=== PATIENT | female | born 1965 | race Caucasian/White ===

== ENCOUNTER 2017-09-01 10:41 | Outpatient (CLI) | END 2017-09-01 10:42 | disposition home or self-care (01) | LOC: LAB 10:41 | PROVIDERS: ATTEND Internal Medicine Rheumatology | DX: L40.59 Other psoriatic arthropathy (principal); Z79.899 Other long term (current) drug therapy | CPT/HCPCS: 36415; 80053; 82565; 85027; 85651 ==

== ENCOUNTER 2018-01-05 14:08 | Outpatient (CLI) | END 2018-01-05 14:09 | disposition home or self-care (01) | LOC: LAB 14:08 | PROVIDERS: ATTEND Internal Medicine Rheumatology | DX: L40.59 Other psoriatic arthropathy (principal); Z79.899 Other long term (current) drug therapy | CPT/HCPCS: 36415; 80053; 85027; 85651 ==

== ENCOUNTER 2018-04-02 15:42 | Outpatient (CLI) | END 2018-04-02 15:43 | disposition home or self-care (01) | LOC: LAB 15:42 | PROVIDERS: ATTEND Internal Medicine Rheumatology | DX: L40.59 Other psoriatic arthropathy (principal); Z79.899 Other long term (current) drug therapy | CPT/HCPCS: 36415; 80053; 85027; 85651 ==